=== PATIENT | female | born 1970 | race Caucasian/White ===

== ENCOUNTER 2022-05-29 15:36 | Emergency (ER) | payer OTHER ==
[~2022-05-29] VITALS: Ht 160 cm; Wt 63.5 kg
[2022-05-29 15:55] VITALS: BP 132/71
[2022-05-29] MEDS ORDERED: NACL 0.9% 1,000 ML IV ONE ×2 (16:15→18:00)
[2022-05-29] MEDS ORDERED: ONDANSETRON 4 MG/2 ML VIAL IVP ONE (16:15)
[2022-05-29 16:35] LABS: BASOPHILS % (AUTO) 0.5 % (0.0-2.0); EOSINOPHILS # (AUTO) 0.2 K/uL (0-0.4); EOSINOPHILS % (AUTO) 2.2 % (0.0-4.0); HEMATOCRIT 37.1 % (36-48); HEMOGLOBIN 11.7 g/dL (12.0-16.0); LYMPHOCYTES # (AUTO) 3.2 K/uL (2.5-16.5); LYMPHOCYTES % (AUTO) 35.5 % (20.5-51.1); MEAN CORPUSCULAR HEMOGLOBIN 24 pg (27-31); MEAN CORPUSCULAR HGB CONC 32 g/dL (33-37); MONOCYTES # (AUTO) 0.8 K/uL (0.8-1.0); MONOCYTES % (AUTO) 8.5 % (1.7-9.3); NEUTROPHILS # (AUTO) 4.8 K/uL (1.8-7.7); NEUTROPHILS % (AUTO) 53.3 % (42.2-75.2); PLATELET COUNT (AUTO) 393 K/uL (140-450); RED BLOOD CELL COUNT(AUTO) 4.95 MIL/uL (4.20-5.40); RED CELL DISTRIBUTION WIDTH 17.8 % (11.6-13.7)
--- NOTE | 2022-05-29 17:13 | NUR ---
PT C/O ABDOMINAL PAIN N/V X8 DAYS, ADMITTED AT [facility] FOR DKA, STATES UNABLE TO TOLERATE PO INTAKE. IV TO LEFT HAND #[id number] MEDICATED PER ORDER
[2022-05-29 17:34] LABS: APPEARANCE,URINE CLEAR (CLEAR); BILIRUBIN,URINE NEGATIVE (NEGATIVE); BLOOD, URINE 1+ (NEGATIVE); COLOR,URINE YELLOW (YELLOW); LEUKOCYTE ESTERASE ,URINE NEGATIVE (NEGATIVE); NITRITE, URINE NEGATIVE (NEGATIVE); UGLUCOSE NEGATIVE (NEGATIVE)
[2022-05-29 17:46] LABS: RBC,URINE 0-5 /HPF (0-5)
[2022-05-29 17:49] LABS: ALBUMIN 3.5 g/dL (3.4-5.0); ANION GAP 20.3 (8-16); CARBON DIOXIDE 22.3 mmol/L (21-32); CREATININE 0.5 mg/dL (0.6-1.3); POTASSIUM 3.6 mmol/L (3.5-5.1); TOTAL BILIRUBIN 0.3 mg/dL (0.0-1.0)
[2022-05-29 18:03] VITALS: BP 151/80
[2022-05-29] MEDS ORDERED: ONDA-188 PO (19:50)
[2022-05-29] MEDS ORDERED: TAM75 PO (19:50)
--- NOTE | 2022-05-29 19:52 | NUR ---
Dr. García examining patient.
--- NOTE | 2022-05-29 19:53 | NUR ---
Patient discharged with v/s stable. Written and verbal after care instructions given and explained. Patient alert, oriented and verbalized understanding of instructions. Ambulatory with steady gait. All questions addressed prior to discharge. ID band removed. Patient advised to follow up with PMD. Rx of TAMIFLU AND ZOFRAN given. Patient educated on indication of medication including possible reaction and side effects. Opportunity to ask questions provided and answered.
== END 2022-05-29 19:53 | disposition home or self-care (01) ==
LOC: MED 15:36
DX: J11.1 Influenza due to unidentified influenza virus with other respiratory manifestations (principal); E86.0 Dehydration; Z20.822 Contact with and (suspected) exposure to COVID-19; E11.9 Type 2 diabetes mellitus without complications; Z79.899 Other long term (current) drug therapy
CPT/HCPCS: 36415; 71045; 80053; 81001; 82803; 83690; 85025; 87086; 87426; 87804; 96361; 96374; 99284; J2405; J7030; Q0092

== ENCOUNTER 2022-06-27 00:27 | Emergency (ER) | payer OTHER ==
[~2022-06-27] VITALS: Ht 152.4 cm; Wt 56.7 kg
[~2022-06-27 00:27] MED LIST: ONDA-188 PO; TAM75 PO
[2022-06-27 00:42] VITALS: BP 143/93
[2022-06-27] MEDS ORDERED: ONDANSETRON 4 MG ODT PO ONE (00:50)
--- NOTE | 2022-06-27 01:16 | NUR ---
Dr. García examining patient.
[2022-06-27] MEDS ORDERED: FAMOTIDINE 20 MG/2 ML VIAL IVP ONE (01:20)
[2022-06-27] MEDS ORDERED: NACL 0.9% 1,000 ML IV ONE (01:20)
[2022-06-27] MEDS ORDERED: ONDANSETRON 4 MG/2 ML VIAL IVP ONE (01:20)
[2022-06-27 01:56] LABS: BASOPHILS # (AUTO) 0.1 K/uL (0.00-0.22); BASOPHILS % (AUTO) 0.5 % (0.0-2.0); EOSINOPHILS % (AUTO) 0.4 % (0.0-4.0); HEMATOCRIT 37.5 % (36-48); HEMOGLOBIN 12.2 g/dL (12.0-16.0); LYMPHOCYTES # (AUTO) 2.1 K/uL (2.5-16.5); LYMPHOCYTES % (AUTO) 21.3 % (20.5-51.1); MEAN CORPUSCULAR HEMOGLOBIN 24 pg (27-31); MEAN CORPUSCULAR HGB CONC 33 g/dL (33-37); MONOCYTES # (AUTO) 0.6 K/uL (0.8-1.0); NEUTROPHILS # (AUTO) 7.1 K/uL (1.8-7.7); NEUTROPHILS % (AUTO) 71.8 % (42.2-75.2); PLATELET COUNT (AUTO) 418 K/uL (140-450); RED BLOOD CELL COUNT(AUTO) 5.14 MIL/uL (4.20-5.40); RED CELL DISTRIBUTION WIDTH 18.1 % (11.6-13.7); WHITE BLOOD COUNT (AUTO) 9.9 K/uL (4.8-10.8)
[2022-06-27] MEDS ORDERED: diphenhydrAMINE 50 MG/ML VIAL IVP ONE (02:10)
[2022-06-27] MEDS ORDERED: PROCHLORPERAZINE 10 MG/2 ML VIAL IVP ONE (02:10)
[2022-06-27] MEDS ORDERED: KETOROLAC 15 MG/ML VIAL IVP ONE (02:15)
[2022-06-27 02:19] LABS: ALBUMIN 4.1 g/dL (3.4-5.0); ANION GAP 18.4 (8-16); CARBON DIOXIDE 24.7 mmol/L (21-32); CREATININE 0.5 mg/dL (0.6-1.3); POTASSIUM 5.1 mmol/L (3.5-5.1); TOTAL BILIRUBIN 0.7 mg/dL (0.0-1.0)
[2022-06-27] MEDS ORDERED: ONDA-188 PO (02:44)
[2022-06-27 02:54] VITALS: BP 132/82
== END 2022-06-27 02:54 | disposition home or self-care (01) ==
LOC: MED 00:27
DX: R11.10 Vomiting, unspecified (principal); T50.995A Adverse effect of other drugs, medicaments and biological substances, initial encounter; E11.9 Type 2 diabetes mellitus without complications; Z79.4 Long term (current) use of insulin; Z79.899 Other long term (current) drug therapy; Y92.89 Other specified places as the place of occurrence of the external cause
CPT/HCPCS: 36415; 80053; 83690; 85025; 96361; 96374; 96375; 99284; J0780; J1200; J1885; J2405; J3490; Q0162; J7030